=== PATIENT | female | born 1965 | race Caucasian/White ===

== ENCOUNTER 2017-11-12 07:49 | Emergency (ER) | payer BC ==
[~2017-11-12] VITALS: Ht 165.1 cm; Wt 89.1 kg
[2017-11-12 07:54] VITALS: TEMP 36.7; Ht 165.1 cm; Wt 89.1 kg
[2017-11-12] MEDS ORDERED: SODIUM CHLORIDE 0.9% 1000ML 1,000 ML IV STA (08:07)
[2017-11-12] MEDS ORDERED: DEXAMETHASONE INJ 10 MG in SYRINGE 0 ML IV STA (08:07)
[2017-11-12] MEDS ORDERED: DiphenhydrAMINE HCL 50 MG/ML VIAL IV STA (08:07)
--- NOTE | 2017-11-12 08:15 | EMERGENCY ROOM VISIT NOTE ---
History First contact with patient: 07:59 Chief Complaint: SKIN PROBLEM Stated Complaint: SWELLING,HIVES History of Present Illness The patient is a 52 year old female who presents to the Emergency Room via private vehicle accompanied by male with complaints of "swelling, hives". The patient states that since mid July she has been experiencing hives intermittently. She is not able to pinpoint any change in her behavior which has led to these developing. She states that she has been to numerous emergency department as well as a section maintainer and treated for reactions, given EpiPen as well as told to take Zyrtec but they persist. She states that her most recent outbreak was last week. She was seen this past Tuesday by dermatology in [place]. She states that each time seems to build upon itself in regard to severity. She notes that today around 2:30 AM she woke up with red hives began on the neck, progressing the chest and all over the body. There is swelling of the forehead as well as the left lower lip. She notes perhaps minimal trouble breathing but is concerned this could just be from being concerned. She states that she did use a new moisturizer yesterday. She denies any new medications, fever, chills. She does take metoprolol but has been taking this for years. No NAVJOT inhibitors, ARBs or statins. She denies chance of . Review of Systems A complete 10-point Review of Systems was discussed with the patient, with pertinent positives and negatives listed in the History of Present Illness. All remaining Review of Systems questions can be considered negative unless otherwise specified. Past Medical/Surgical History Allergic reactions Family History No pertinent. Social History Smoking Status: Former Smoker Current/Historical Medications Scheduled Metoprolol Tartrate (Lopressor) (Lopressor), 100 MG PO DAILY Prednisone (Prednisone), 0 PO DAILY Physical Exam Vital Signs Date Time Temp Pulse Resp B/P (MAP) Pulse Ox O2 Delivery O2 Flow Rate FiO2 11/12/17 10:15 59 18 176/104 93 11/12/17 09:19 60 16 194/114 95 Room Air 11/12/17 08:24 96 Room Air 11/12/17 08:18 62 11/12/17 07:54 36.7 66 18 202/148 97 Room Air Physical Exam VITAL SIGNS - Vital signs and nursing notes were reviewed. Hypertensive. Afebrile. GENERAL -52-year-old female appearing her stated age who is in no acute distress. Communicates well with provider and answers questions appropriately. SKIN -there are several urticarial like rashes on the patient's body. They are erythematous, measuring anywhere from subcentimeter to 3 cm in diameter. They are circular. They are minimally raised. They are most pronounced on the anterior portion of the patient's neck. There is also left inferior lip swelling and forehead swelling. HEAD - NC/AT. EYES - PERRL with EOMI bilaterally. Sclera anicteric. EARS - No deformities of external structures noted on gross examination bilaterally. NOSE - Midline and without cyanosis. No epistaxis or purulent drainage noted. MOUTH/OROPHARYNX - Without perioral cyanosis. Buccal mucosa pink and moist and without leukoplakia. Tongue midline with equal elevation of palate bilaterally. No tonsillar hypertrophy, erythema, or exudates noted. Fair Dentition noted. The airway is patent. NECK - Neck with FROM. Supple to palpation. No lymphadenopathy noted. No nuchal rigidity. LUNGS - Chest wall symmetric without accessory muscle use, intercostals retractions, or central cyanosis. Normal vesicular breath sounds CTA B/L. No wheezes, rales, or rhonchi appreciated. CARDIAC - RRR with S1/S2. No murmur, rubs, or gallops appreciated. EXTREMITIES - +5/5 strength noted in UE/LE bilaterally. NEUROLOGIC - Cranial nerves II through XII grossly intact. Sensory intact to light touch throughout. PSYCH - A&O, and cooperates fully with examiner. Pt is very pleasant and interacts well with examiner. Medical Decision & Procedures Laboratory Results 11/12/17 08:20 Red Blood Count 5.10, Mean Corpuscular Volume 88.8, Mean Corpuscular Hemoglobin 30.8, Mean Corpuscular Hemoglobin Concent 34.7, Mean Platelet Volume 9.1, Neutrophils (%) (Auto) 70.7, Lymphocytes (%) (Auto) 18.2, Monocytes (%) (Auto) 7.6, Eosinophils (%) (Auto) 0.9, Basophils (%) (Auto) 0.3, Neutrophils # (Auto) 10.72, Lymphocytes # (Auto) 2.76, Monocytes # (Auto) 1.15, Eosinophils # (Auto) 0.13, Basophils # (Auto) 0.05 11/12/17 08:20 Test 11/12/17 08:15 11/12/17 08:20 Urine Color YELLOW Urine Appearance CLEAR (CLEAR) Urine pH 7.0 (4.5-7.5) Urine Specific [place] 1.022 (1.000-1.030) Urine Protein NEG (NEG) Urine Glucose (UA) NEG (NEG) Urine Ketones NEG (NEG) Urine Occult Blood NEG (NEG) Urine Nitrite NEG (NEG) Urine Bilirubin NEG (NEG) Urine Urobilinogen NEG (NEG) Urine Leukocyte Esterase TRACE (NEG) Urine WBC (Auto) 1-5 /hpf (0-5) Urine RBC (Auto) 0-4 /hpf (0-4) Urine Hyaline Casts (Auto) 1-5 /lpf (0-5) Urine Epithelial Cells (Auto) >30 /lpf (0-5) Urine Bacteria (Auto) NEG (NEG) White Blood Count 15.16 K/uL (4.8-10.8) Red Blood Count 5.10 M/uL (4.2-5.4) Hemoglobin 15.7 g/dL (12.0-16.0) Hematocrit 45.3 % (37-47) Mean Corpuscular Volume 88.8 fL (80-100) Mean Corpuscular Hemoglobin 30.8 pg (25-34) Mean Corpuscular Hemoglobin Concent 34.7 g/dl (32-36) Platelet Count 364 K/uL (130-400) Mean Platelet Volume 9.1 fL (7.4-10.4) Neutrophils (%) (Auto) 70.7 % Lymphocytes (%) (Auto) 18.2 % Monocytes (%) (Auto) 7.6 % Eosinophils (%) (Auto) 0.9 % Basophils (%) (Auto) 0.3 % Neutrophils # (Auto) 10.72 K/uL (1.4-6.5) Lymphocytes # (Auto) 2.76 K/uL (1.2-3.4) Monocytes # (Auto) 1.15 K/uL (0.11-0.59) Eosinophils # (Auto) 0.13 K/uL (0-0.5) Basophils # (Auto) 0.05 K/uL (0-0.2) RDW Standard Deviation 45.5 fL (36.4-46.3) RDW Coefficient of Variation 13.9 % (11.5-14.5) Immature Granulocyte % (Auto) 2.3 % Immature Granulocyte # (Auto) 0.35 K/uL (0.00-0.02) Erythrocyte Sedimentation Rate 14 mm/hr (0-21) Prothrombin Time 10.1 SECONDS (9.0-12.0) Prothromb Time International Ratio 1.0 (0.9-1.1) Activated Partial Thromboplast Time 25.3 SECONDS (21.0-31.0) Partial Thromboplastin Ratio 1.0 Anion Gap 6.0 mmol/L (3-11) Est Creatinine Clear Calc Drug Dose 73.3 ml/min Estimated GFR () 75.9 Estimated GFR (Non- 65.5 BUN/Creatinine Ratio 17.8 (10-20) Calcium Level 8.6 mg/dl (8.5-10.1) Magnesium Level 2.1 mg/dl (1.8-2.4) Total Bilirubin 0.3 mg/dl (0.2-1) Aspartate Amino Transf (AST/SGOT) 15 U/L (15-37) Alanine Aminotransferase (ALT/SGPT) 49 U/L (12-78) Alkaline Phosphatase 113 U/L (45-117) Total Creatine Kinase 38 U/L (26-192) Creatine Kinase MB < 0.5 ng/ml (0.5-3.6) Creatine Kinase MB Ratio (0-3.0) C-Reactive Protein 0.54 mg/dl (0-0.29) Total Protein 7.7 gm/dl (6.4-8.2) Albumin 3.5 gm/dl (3.4-5.0) Globulin 4.2 gm/dl (2.5-4.0) Albumin/Globulin Ratio 0.8 (0.9-2) Lyme Disease IgG Antibody NEG (NEG) Lyme Disease IgM Antibody NEG (NEG) Medications Administered Medications (Trade) Dose Ordered Sig/Marina Route Start Time Stop Time Status Last Admin Dose Admin Sodium Chloride 1,000 ml @ 999 mls/hr Q1H1M STAT IV 11/12/17 08:07 11/12/17 09:07 DC 11/12/17 08:28 999 MLS/HR Diphenhydramine HCl (Benadryl Inj) 50 mg NOW STAT IV 11/12/17 08:07 11/12/17 08:09 DC 11/12/17 08:29 50 MG Dexamethasone Sodium Phosphate (Dexamethasone Inj Pf) 10 mg STK-MED ONCE .ROUTE 11/12/17 08:26 11/12/17 08:27 DC 11/12/17 08:29 10 MG Medical Decision Patient was seen and evaluated as above. She presents to us today with an allergic reaction, with hives. No difficulty breathing and the airways patent. Vital signs do reveal elevated blood pressure but otherwise stable. She notes that when she is frustrated at times elevated blood pressure is present. Review was performed of nursing notes and vital signs. After obtaining a thorough history and physical examination the above work up was performed. Minimal leukocytosis at 15.16 which I believe is likely secondary to previous steroid use last week and the reaction today. ESR negative. CRP minimally elevated. Coags normal. Metabolic panel reveals no evidence of kidney or liver failure. Patient's C-reactive protein is elevated at 0.54. Urine reveals no acute process. Lyme disease testing negative. She was given Decadron, fluids and Benadryl here. The hives began to subside. No evidence of anaphylaxis. She does have EpiPen at home of which she may use if need be. I did attempt to establish follow-up with a local dynamics ax technical architect and did enlist the help of our case management to help complete such. She is to return with worsening. She was stable throughout her stay and appears stable for outpatient management. The patient was educated upon management, had questions answered prior to discharge, and was discharged home in good condition. In the evaluation and treatment of this patient the following differential diagnoses were entertained: Anaphylaxis, hives/urticaria, autoimmune disorder, sepsis, ITP/TTP, among others. Impression Primary Impression: Hives Additional Impression: Allergic reaction Departure Information Dispostion Home / Self-Care Condition GOOD Prescriptions Prednisone (Prednisone) 20 Mg Tab 0 PO DAILY, #18 TAB 3 DAILY FOR 3 DAYS, THEN 2 DAILY FOR 3 DAYS, THEN 1 DAILY FOR 3 DAYS. Prov: Luis Carlos Dickens PA-C 11/12/17 Referrals Sherice Rajan DO (PCP) Patient Instructions [facility] Additional Instructions You have been treated in the Emergency Department for an Allergic Reaction. You have been treated and monitored in the Emergency Department appropriately. You should take Benadryl (diphenhydramine) 25 mg orally every 4-6 hours for the next 7 days. This medication is [id number] and you will NOT need a prescription to purchase this at your local pharmacy. You should continue taking the Benadryl for the COMPLETION of the 7 days. This is to prevent a rebound allergic reaction in the event that allergens are still present in your system. You should take Zantac (ranitidine) 75 mg orally once daily for the next 7 days. This medication is [id number] and you will NOT need a prescription to purchase this at your local pharmacy. You should continue taking the Zantac for the COMPLETION of the 7 days. This is to prevent a rebound allergic reaction in the event that allergens are still present in your system. You have been prescribed Prednisone, to be taken orally once a day for the next 9 days (PLEASE BEGIN TOMORROW AM as the IV dose you had here will last all day. This is an anti-inflammatory medicine to be used to help minimize your symptoms. You should take the COMPLETE course of the medication. You have been previously prescribed an EpiPen to be used in the case of an Emergency. Please read the packet you have been given and ask your pharmacist for instructions on proper administration. If you begin to experience the symptoms that brought you to the Emergency Department today, you should give yourself the injection and then report IMMEDIATELY to the Emergency Department for further evaluation and treatment. As with every Emergency Department visit, you should follow-up with your primary care provider in 2-3 days for reevaluation. We will help establish an appointment with a local dynamics ax technical architect to help with your hives. Return to the Emergency Department if your current symptoms worsen despite treatment course outlined above, or if you develop any of the following symptoms : wheezing, tongue or face swelling, tightness in your throat, shortness of breath, or fainting. Problem Qualifiers
[2017-11-12 08:24] VITALS: O2SAT 96
[2017-11-12] MEDS ORDERED: DEXAMETHASONE **PF** INJ 10 MG/ML VIAL ONE (08:26)
[2017-11-12 08:30] LABS: BASO % 0.3 %; BASO ABS # 0.05 K/uL (0-0.2); EOS % 0.9 %; EOS ABS # 0.13 K/uL (0-0.5); HEMATOCRIT 45.3 % (37-47); HEMOGLOBIN 15.7 g/dL (12.0-16.0); IG# 0.35 K/uL (0.00-0.02); LYMPH % 18.2 %; LYMPH ABS # 2.76 K/uL (1.2-3.4); MEAN CELL VOLUME 88.8 fL (80-100); MEAN CORPUSCULAR HEMOGLOBIN 30.8 pg (25-34); MEAN CORPUSCULAR HGB CONC 34.7 g/dl (32-36); MEAN PLATELET VOLUME 9.1 fL (7.4-10.4); MONO % 7.6 %; MONO ABS # 1.15 K/uL (0.11-0.59); NEUT % 70.7 %; NEUT ABS # 10.72 K/uL (1.4-6.5); PLATELET COUNT 364 K/uL (130-400); RED CELL DISTRIBUTION WIDTH CV 13.9 % (11.5-14.5); RED CELL DISTRIBUTION WIDTH SD 45.5 fL (36.4-46.3); WHITE BLOOD COUNT 15.16 K/uL (4.8-10.8)
[2017-11-12 08:38] LABS: PTT PATIENT 25.3 SECONDS (21.0-31.0)
[2017-11-12] MEDS ORDERED: METO100T14 PO (08:38)
[2017-11-12 08:46] LABS: ALBUMIN 3.5 gm/dl (3.4-5.0); ALT/SGPT 49 U/L (12-78); BLOOD UREA NITROGEN 18 mg/dl (7-18); CALCIUM 8.6 mg/dl (8.5-10.1); CARBON DIOXIDE 24 mmol/L (21-32); CREATININE 0.99 mg/dl (0.60-1.20); GLUCOSE 95 mg/dl (70-99); POTASSIUM 4.1 mmol/L (3.5-5.1); SODIUM 136 mmol/L (136-145)
[2017-11-12 08:49] LABS: ALKALINE PHOSPHATASE 113 U/L (45-117); AST/SGOT 15 U/L (15-37); CKMB < 0.5 ng/ml (0.5-3.6); TOTAL PROTEIN 7.7 gm/dl (6.4-8.2)
[2017-11-12] MEDS ORDERED: PRED20TA PO (09:45)
[2017-11-12 10:15] VITALS: BP 176/104; PULSE 59; O2SAT 93
== END 2017-11-12 10:16 | disposition home or self-care (01) ==
LOC: C.EDB 07:51 → C.EDA 10:16
DX: L50.9 Urticaria, unspecified (principal); T78.40XA Allergy, unspecified, initial encounter; X58.XXXA Exposure to other specified factors, initial encounter; Z87.891 Personal history of nicotine dependence